=== PATIENT | female | born 1990 | race African-American/Black ===

== ENCOUNTER 2018-09-12 10:13 | Emergency (ER) | payer MEDICAID, OTHER ==
[~2018-09-12] VITALS: Ht 175.3 cm; Wt 68.2 kg
[2018-09-12] MEDS ORDERED: ACETAMINOPHEN 325MG TABLET PO ONE (11:30)
[2018-09-12 13:00] VITALS: BP 123/77
== END 2018-09-12 13:00 | disposition home or self-care (01) ==
LOC: ER 10:13
DX: M25.532 Pain in left wrist (principal); M25.512 Pain in left shoulder; F17.200 Nicotine dependence, unspecified, uncomplicated; Z98.890 Other specified postprocedural states; W01.0XXA Fall on same level from slipping, tripping and stumbling without subsequent striking against object, initial encounter; Y93.89 Activity, other specified; Y92.89 Other specified places as the place of occurrence of the external cause; Y99.8 Other external cause status
CPT/HCPCS: 73110; 73130; 81025; 99283

== ENCOUNTER 2019-06-29 03:10 | Emergency (ER) | payer MEDICAID ==
[~2019-06-29] VITALS: Ht 175.3 cm; Wt 72.0 kg
[2019-06-29 06:02] VITALS: BP 131/89
== END 2019-06-29 06:05 | disposition home or self-care (01) ==
LOC: ER 03:10
DX: S01.21XA Laceration without foreign body of nose, initial encounter (principal); J34.89 Other specified disorders of nose and nasal sinuses; Z98.890 Other specified postprocedural states; Y08.89XA Assault by other specified means, initial encounter; Y93.89 Activity, other specified; Y92.89 Other specified places as the place of occurrence of the external cause; Y99.8 Other external cause status
CPT/HCPCS: 70140; 99283

== ENCOUNTER 2020-05-22 22:05 | Emergency (ER) | payer MEDICAID ==
[~2020-05-22] VITALS: Ht 170.2 cm; Wt 67.0 kg
[2020-05-22] MEDS ORDERED: TETANUS, DIPHTHERIA, PERTUSSIS VAC/PF 0.5ML (>7YR OLD) IM ONE (23:30)
[2020-05-22] MEDS ORDERED: LIDOCAINE 1%/EPI 1:100,000 10 ML VIAL IJ ONE (23:30)
[2020-05-22] MEDS ORDERED: IBUPROFEN 600MG TABLET PO ONE (23:30)
[2020-05-22] MEDS ORDERED: BACITRACIN ZINC OINT UDPKT TOP ONE (23:30)
[2020-05-22] MEDS ORDERED: HYDROCODONE/ACETAMINOPHEN 5/325MG TABLET PO ONE (23:30)
[2020-05-23 00:59] VITALS: BP 130/85
[2020-05-23] MEDS ORDERED: LIDOCAINE HCL/EPINEPHRINE 1%-EPI 1:100,000 50 ML VIAL INFIL NR (01:00)
[2020-05-23] MEDS ORDERED: IBUP-2028 MT (02:52)
[2020-05-23] MEDS ORDERED: HYDR-4001 MT (02:52)
[2020-05-23] MEDS ORDERED: CEPH500T MT (02:52)
== END 2020-05-23 03:30 | disposition home or self-care (01) ==
LOC: ER 22:05
DX: S02.2XXA Fracture of nasal bones, initial encounter for closed fracture (principal); Y08.89XA Assault by other specified means, initial encounter; Y93.89 Activity, other specified; Y92.89 Other specified places as the place of occurrence of the external cause; Y99.8 Other external cause status; Z98.890 Other specified postprocedural states; Z79.899 Other long term (current) drug therapy
CPT/HCPCS: 12011; 70450; 70486; 81025; 99285; A4217; Z7610; J3490

== ENCOUNTER 2020-06-04 20:16 | Emergency (ER) | payer MEDICAID ==
[~2020-06-04] VITALS: Ht 177.8 cm; Wt 65.0 kg
[~2020-06-04 20:16] MED LIST: CEPH500T MT; HYDR-4001 MT; IBUP-2028 MT
[2020-06-04 20:47] VITALS: BP 130/74
[2020-06-04] MEDS ORDERED: NAPR-420 MT (22:21)
== END 2020-06-04 22:45 | disposition home or self-care (01) ==
LOC: ER 20:16
DX: S01.21XD Laceration without foreign body of nose, subsequent encounter (principal); Z48.02 Encounter for removal of sutures; Z98.890 Other specified postprocedural states; X58.XXXD Exposure to other specified factors, subsequent encounter
CPT/HCPCS: 99281; Z7610

== ENCOUNTER 2023-10-01 17:35 | Emergency (ER) | payer MEDICAID ==
[~2023-10-01 17:35] MED LIST changes: +NAPR-420 MT
[2023-10-01 17:40] VITALS: PULSE 93
== END 2023-10-01 18:31 | disposition left against medical advice (07) ==
LOC: ER 17:59
DX: R10.9 Unspecified abdominal pain (principal); Z53.21 Procedure and treatment not carried out due to patient leaving prior to being seen by health care provider
CPT/HCPCS: 81025